=== PATIENT | female | born 1980 | race Caucasian/White ===

== ENCOUNTER 2017-06-26 17:42 | Emergency (ER) | payer OTHER ==
[~2017-06-26] VITALS: Ht 162.6 cm; Wt 81.8 kg
[2017-06-26 17:44] VITALS: BP 137/90; TEMP 99.3
[2017-06-26] MEDS ORDERED: AMOXICILLIN 50500 MG PO (18:30)
[2017-06-26] MEDS ORDERED: NORCO 325 MG-51 TAB PO (18:30)
[2017-06-26 18:42] VITALS: PULSE 80
== END 2017-06-26 18:42 | disposition home or self-care (01) ==
LOC: COL.ER 17:42
DX: K02.9 Dental caries, unspecified (principal); K04.7 Periapical abscess without sinus; Z98.890 Other specified postprocedural states

== ENCOUNTER 2018-06-09 18:40 | Emergency (ER) | payer OTHER ==
[~2018-06-09] VITALS: Ht 162.6 cm; Wt 79.1 kg
[~2018-06-09 18:40] MED LIST: AMOXICILLIN 50500 MG PO; NORCO 325 MG-51 TAB PO
[2018-06-09 18:47] VITALS: TEMP 97
[2018-06-09 19:31] LABS: BASO % 0.4 % (0.0-2.0); EOS # 0.1 (0.0-0.7); EOS % 1.6 % (0-4.0); GRAN # 4.5 (1.4-6.5); GRAN % 58.7 % (42.2-75.2); HEMOGLOBIN 12.4 g/dl (12.5-16.0); LYMPH # 2.4 (1.2-3.4); LYMPH % 31.9 % (20.0-51.0); MEAN CELL VOLUME 91 fl (80.0-100.0); MEAN CORPUSCULAR HEMOGLOBIN 31 pg (27.0-31.0); MEAN CORPUSCULAR HGB CONC 34 g/dl (33.0-37.0); MONO # 0.5 (0.1-0.6); MONO % 7.1 % (1.7-9.3); PLATELET COUNT 268 K/mm3 (130-400); RED BLOOD COUNT 4.06 M/mm3 (4.10-5.30); REDCELL DISTRIBUTION WIDTH-CV 12.3 % (11.5-14.5)
[2018-06-09 19:33] LABS: HEMATOCRIT 36.9 % (37.0-47.0)
[2018-06-09 20:26] VITALS: BP 134/93; PULSE 79
== END 2018-06-09 20:27 | disposition home or self-care (01) ==
LOC: COL.ER 18:40
PROVIDERS: Emergency Medicine
DX: N92.1 Excessive and frequent menstruation with irregular cycle (principal); Z98.890 Other specified postprocedural states